=== PATIENT | female | born 1930 | race Caucasian/White ===

== ENCOUNTER → 2017-01-03 | Outpatient (CLI) | payer OTHER | LOC: FCPNEURO 22:47 | PROVIDERS: ATTEND Psychiatry & Neurology Sleep Medicine | DX: G47.33 Obstructive sleep apnea (adult) (pediatric) (principal); G47.34 Idiopathic sleep related nonobstructive alveolar hypoventilation; G47.61 Periodic limb movement disorder ==

== ENCOUNTER 2018-04-16 16:47 | Inpatient (IN) | payer OTHER ==
--- NOTE | 2018-04-16 17:05 | EDPHY ---
H & P Time Seen by Provider: 04/16/18 17:00 HPI/ROS: Chief complaint. Palpitations HPI. 87-year-old female presents emergency department with complaint of few weeks fast heart rate. She takes metoprolol and Eliquis for chronic atrial fibrillation. She has chronic shortness of breath and is on oxygen. Today she felt she needed checkup for the 2 weeks of fast heart rate and called her PCP who then called 911. She has no chest pain and does not have shortness of breath. No fever cough. No unusual leg pain or swelling. ROS 10 systems were reviewed and negative with the exception of the elements mentioned in the history of present illness Past Medical/Surgical History: Atrial fibrillation Social History: Single, nonsmoker, no alcohol Smoking Status: Never smoked Physical Exam: General Appearance: Alert well-developed female mild distress vital signs show initial heart rate 120. Recheck at 5:15 p.m. Heart rate is 81 Eyes: Pupils equal and round no pallor or injection. ENT, Mouth: Mucous membranes are moist. Respiratory: There are no retractions, lungs are clear to auscultation. Cardiovascular: Irregularly irregular rate and rhythm Gastrointestinal: Abdomen is soft and nontender, no masses, bowel sounds normal. Neurological: Awake and alert, sensory and motor exams grossly normal. Skin: Warm and dry, no rashes. Musculoskeletal: Neck is supple nontender. Extremities symmetrical, full range of motion. Psychiatric: Patient is oriented X 3, there is no agitation. Constitutional: Initial Vital Signs Temperature (C) 36.6 C 04/16/18 16:51 Heart Rate 120 H 04/16/18 16:51 Respiratory Rate 20 04/16/18 16:51 Blood Pressure 156/75 H 04/16/18 16:51 O2 Sat (%) 91 L 04/16/18 16:51 O2 Delivery Mode Room Air Allergies/Adverse Reactions: adhesive tape [Adhesive Tape] Allergy (Severe, Verified 04/16/18 16:50) SKIN PEELS codeine [Codeine] Allergy (Intermediate, Verified 04/16/18 16:50) GI UPSET propoxyphene HCl [From Darvon] Allergy (Intermediate, Verified 04/16/18 16:50) GI UPSET albuterol [Albuterol] Allergy (Unknown, Verified 04/16/18 16:50) Other-Enter Comments Home Medications: Medication Instructions Recorded Eliquis 04/16/18 Levothyroxine 04/16/18 Metoprolol Succinate 04/16/18 Medical Decision Making - Diagnostics EKG Interpretation: EKG interpreted by me shows atrial fibrillation normal axis. QRS otherwise normal. PVC is noted. No significant ST elevation or depression. Ventricular response is 99 Imaging Results: Imaging Impressions Chest X-Ray 04/16/18 17:27 Impression: 1. New right pleural effusion. Difficult to exclude underlying pneumonia or consolidation of other etiology. 2. Possible new cardiomegaly versus findings related to decreased inspiratory phase and portable technique. Chest x-ray interpreted by me shows a new right pleural effusion Procedures: IV normal saline, monitor ED Course/Re-evaluation: On re-evaluation patient is stable. I have spoken to cardiology from [facility] it covers [facility]. The patient and I discussed imaging lab EKG findings. We discussed treatment plan including recommendation for admission. She expresses understanding and agreement I consulted discussed case Dr. Redmond, hospitalist who sees the patient in the emergency department Differential Diagnosis: Initially poorly controlled atrial fibrillation however it stabilizes and the ventricular response is in the 70s. No evidence for acute coronary syndrome. New right pleural effusion. I have considered pneumonia as an etiology. - Data Points Laboratory Results: Laboratory Results 04/16/18 17:07 04/16/18 17:07 04/16/18 04/16/18 04/16/18 17:11 17:07 17:07 WBC 6.53 10^3/uL 10^3/uL (3.80-9.50) RBC 5.40 10^6/uL H 10^6/uL (4.18-5.33) Hgb 15.9 g/dL g/dL (12.6-16.3) Hct 49.4 % H % (38.0-47.0) MCV 91.5 fL fL (81.5-99.8) MCH 29.4 pg pg (27.9-34.1) MCHC 32.2 g/dL L g/dL (32.4-36.7) RDW 14.4 % % (11.5-15.2) Plt Count 337 10^3/uL 10^3/uL (150-400) MPV 10.9 fL fL (8.7-11.7) Neut % (Auto) 53.3 % % (39.3-74.2) Lymph % (Auto) 33.4 % % (15.0-45.0) Ross % (Auto) 10.6 % % (4.5-13.0) Eos % (Auto) 1.4 % % (0.6-7.6) Baso % (Auto) 1.1 % % (0.3-1.7) Nucleat RBC Rel Count 0.0 % % (0.0-0.2) Absolute Neuts (auto) 3.49 10^3/uL 10^3/uL (1.70-6.50) Absolute Lymphs (auto) 2.18 10^3/uL 10^3/uL (1.00-3.00) Absolute Monos (auto) 0.69 10^3/uL 10^3/uL (0.30-0.80) Absolute Eos (auto) 0.09 10^3/uL 10^3/uL (0.03-0.40) Absolute Basos (auto) 0.07 10^3/uL 10^3/uL (0.02-0.10) Absolute Nucleated RBC 0.00 10^3/uL 10^3/uL (0-0.01) Immature Gran % 0.2 % % (0.0-1.1) Immature Gran # 0.01 10^3/uL 10^3/uL (0.00-0.10) Sodium 136 mEq/L mEq/L (135-145) Potassium 4.4 mEq/L mEq/L (3.3-5.0) Chloride 99 mEq/L mEq/L (97-110) Carbon Dioxide 24 mEq/l mEq/l (22-31) Anion Gap 13 mEq/L mEq/L (6-14) BUN 23 mg/dL mg/dL (7-23) Creatinine 0.9 mg/dL mg/dL (0.6-1.0) Estimated GFR 59 Glucose 110 mg/dL H mg/dL (70-100) Calcium 9.3 mg/dL mg/dL (8.5-10.4) POC Troponin I 0.01 ng/mL ng/mL (0.00-0.08) NT-Pro-B Natriuret Pep 2070 pg/mL H pg/mL (0-450) TSH 7.230 uIU/mL H uIU/mL (0.465-4.680) Point of Care Test Results: Chemistry 04/16/18 17:11 POC Troponin I 0.01 ng/mL ng/mL (0.00-0.08) Departure - Departure Disposition: [facility] Inpatient Acute Clinical Impression: Pleural effusion, right Congestive heart failure Qualifiers: Heart failure type: unspecified Heart failure chronicity: unspecified Qualified Code(s): I50.9 - Heart failure, unspecified Atrial fibrillation Qualifiers: Atrial fibrillation type: chronic Qualified Code(s): I48.2 - Chronic atrial fibrillation Condition: Fair
[2018-04-16 17:39] LABS: PLATELET COUNT 337 10^3/uL (150-400)
--- NOTE | 2018-04-16 20:37 | CPEKG ---
Test Reason : OPEN Blood Pressure : / mmHG Vent. Rate : 099 BPM Atrial Rate : 133 BPM P-R Int : 225 ms QRS Dur : 082 ms QT Int : 352 ms P-R-T Axes : 120 084 037 degrees QTc Int : 452 ms Atrial fibrillation Borderline right axis deviation Minimal ST depression, anterolateral leads Minimal ST elevation, lateral leads Confirmed by Jose Gunderson ([id number]) on 04/16/2018 8:37:28 PM Referred By: Confirmed By:Jose Gunderson
[2018-04-16] MEDS ORDERED: ONDANSETRON DISINTEGRATING 4 MG TAB PO PRN (22:33)
[2018-04-16] MEDS ORDERED: ONDANSETRON 4 MG/2 ML VIAL IVP PRN (22:33)
[2018-04-16] MEDS ORDERED: ACETAMINOPHEN 325 MG TAB PO PRN (22:33)
[2018-04-16] MEDS ORDERED: FUROSEMIDE 20 MG/2 ML VIAL IVP ONE (22:41)
[2018-04-16] MEDS: APIXABAN 2.5 MG PO SCH (23:34)
[2018-04-16] MEDS: METOPROLOL TARTRATE PO SCH (23:34)
[2018-04-16] MEDS: CYCLOSPORINE 0.05% EACHEYE SCH (23:35)
[2018-04-16] MEDS: DORZOLAMIDE HCL EACHEYE SCH (23:35)
--- NOTE | 2018-04-17 03:37 | GHP ---
DATE OF ADMISSION: 04/16/2018 SOURCE: Patient provides history, appears reliable. EMR is reviewed and case discussed with corbin estrella hospitalist. CHIEF COMPLAINT: Palpitations and shortness of breath. HISTORY OF PRESENT ILLNESS: This is a very pleasant 87-year-old female with past medical history sig nificant for chronic atrial fibrillation, currently on Eliquis and metoprolol, hypothyroidism and rhe umatoid arthritis, with a chronic right pleural effusion, who presents to the emergency department to day with complaints of intermittent palpitations and worsening shortness of breath for several weeks. The patient has chronic shortness of breath. She is on O2. She has a chronic right pleural effusi on, for which she has had multiple thoracenteses, last in 2011, with a negative malignancy workup, wh jung also complains of lower extremity edema, orthopnea, and PND. The patient reports that she drinks a lot a water. She has no previous reported history of CHF. She denies any chest pain or pressure. She has had a mild intermittent cough with occasional clear sputum production. Patient denies any fe vers. She has had occasional nighttime chills, but no rigors. She also reports chronic history of n ighttime sweats. She denies any acute changes in weight. REVIEW OF SYSTEMS: Ten systems reviewed, negative except as noted above. ALLERGIES: To adhesives, codeine, Darvocet, and albuterol. HOME MEDICATIONS: Eliquis 2.5 mg p.o. twice daily, levothyroxine 25 mcg p.o. daily, metoprolol tartr ate 12.5 mg p.o. twice daily, dorzolamide 1 drop in each eye twice daily, Restasis 0.05% 1 drop in ea ch eye twice daily. PAST MEDICAL HISTORY: Significant for chronic atrial fibrillation, on anticoagulation with Eliquis a s above, hypothyroidism, rheumatoid arthritis, not on any DMARDs or immunosuppressants, chronic right pleural effusion. PAST SURGICAL HISTORY: Significant for repositioning of the kidney on the right, cholecystectomy, hy sterectomy, exploratory laparotomy, appendectomy, bilateral cataract extraction with lens placement, LASIK surgery. The patient had a hip fracture repair followed by a right total hip arthroplasty. Alex granados has also had a thoracentesis on the right pleural effusion x2, last being in 2011, with a negative evaluation. FAMILY HISTORY: Father with diabetes and Parkinson's, age 60. Mother with history of IN la ter age. The patient with 3 brothers and a sister with history of CAD and IN. Son has degenerative joint disease in his knees, but otherwise is healthy. SOCIAL HISTORY: Patient lives alone. She is . She does not smoke, drink, or do drugs. CODE STATUS: Full. PHYSICAL EXAM: VITAL SIGNS: Upon arrival to the ED, blood pressure 156/75, heart rate 120, respirat ory rate 20, O2 saturation 91% on room air, with a temperature of 36.6. Current vitals available: B lood pressure 153/75, heart rate 64, respiratory rate is 20, O2 saturation 100% on 2 L by nasal cannu la, and temperature 36.6. GENERAL: No acute distress. Very pleasant, frail, elderly-appearing gulshan ram, who is sitting up on the edge of the bed. She is in good spirits. HEAD: Normocephalic, atrauma tic. EYES: Extraocular muscles are grossly intact. Pupils equal, round, with reactivity to light b ilaterally, and symmetric. Lens reflexes appreciated bilaterally. No scleral icterus or conjunctiva l injection. ENT: Mucous membranes appear moist. No oropharyngeal erythema or exudates. NECK: Portillo pple. Trachea midline. CV: Irregularly irregular, rate in the 60s to 70s. No murmurs, rubs, or ga llops appreciated. RESPIRATORY: Unlabored breathing. Patient with nasal cannula in place. Diminis hed breath sounds by laterally. A few crackles on the right base. No wheezes or rhonchi. GI: Posi tive bowel sounds. Soft, nontender to palpation. No rebound, guarding, or masses appreciated. : No suprapubic tenderness to palpation. No Shelton catheter in place. EXTREMITIES: Patient does have 1 to 2+ pitting edema of bilateral lower extremities just proximal to the ankle. She has 1+ pedal p ulses bilaterally and symmetric. MUSCULOSKELETAL: Moves all extremities. Sits up independently. Grossly deconditioned. NEUROLOGIC: Patient awake, alert, and oriented x3. Moves all extremities as noted above. Nothing focal. No f acial drooping appreciated. PSYCH: The patient's thought process, content, and questions are all ap propriate. Patient is pleasant and cooperative. LABORATORY STUDIES: 1. WBC 6.53, H and H 15.9 and 49.4, MCV of 91.5, platelet count 337. No bands. VBG: Lactic acid 0 .8. 2. Sodium is 136, potassium 4.4, chloride 99, CO2 is 24, anion gap of 13, BUN is 23, creatinine is 0 .9, GFR of 59, glucose is 110, calcium 9.3. 3. Troponin is negative. Troponin 0.01. BTNP is 2070. TSH is 7.230 with normal T3, T4 at 1.08 and 3.59 respectively. 4. Blood cultures x2 are pending. 5. EKG, reviewed myself, showing atrial fibrillation, rate in the 90s. QTc is 554, ST depressions i n the anterolateral leads. PVC is present, almost patient with atrial flutter appearance. 6. Chest x-ray: Image and report reviewed myself. Patient with a moderate right pleural effusion, cardiomegaly, chronic effusion, orthopedic fusion of the lower cervical spine. ASSESSMENT AND PLAN: A very pleasant 87-year-old female, who presents to the emergency department [facility] complaints of worsening palpitations and shortness of breath. 1. Atrial fibrillation or flutter with rapid ventricular response. The patient has had improvement in heart rate. She has received a dose of Lasix since arrival to the medical floor. I gave her gent le diuresis with 20 mg IV Lasix. The patient states she has had multiple voids and her respiratory s tatus is improved, and she has not had any additional palpitations since arrival to the floor. Her h eart rate is now in the 60s to 70s. She remains in atrial fibrillation/flutter. We will plan to res ume patient's metoprolol and Eliquis. I suspect patient's symptoms have been triggered by worsening congestive heart failure. She denies a history of diagnosis of congestive heart failure, but she has cardiomegaly, lower extremity edema, orthopnea, paroxysmal nocturnal dyspnea, consistent clinically with that, and her BTNP is elevated at greater than 2000. We will plan for an echocardiogram in the morning. 2. Acute congestive heart failure decompensation. Plan as noted above. 3. Right moderate pleural effusion. The patient reports that this is a chronic issue for her. She has had multiple thoracenteses in the past and workup that was negative. She was advised that this w as likely related to her rheumatoid arthritis. She has not had any fevers. She does report some angelica shirley chills and has had chronic sweats. She has had some mild cough, but no leukocytosis. She has b een afebrile here. We will hold off on antibiotic therapy at this time. She has had blood cultures drawn. 4. Elevated blood pressures. Suspect some underlying hypertension, although patient is still with c omplaints of mild dyspnea. We will hold off on addition from her metoprolol and Lasix. Patient note s that she was previously placed on Lasix, but this was discontinued secondary to drops in blood pres sure with the metoprolol previously. 5. Hypothyroidism. TSH was elevated, but her T3 and T4 are within normal limits. Continue patient' s home dosing of levothyroxine. 6. Fluid, electrolyte, and nutrition. Patient will be saline locked while she is on diuresis. Flui d restriction to 1800 mL per 24 hours. Further counseling to the patient regarding fluid restriction . Electrolytes at this time are adequate. Continue to monitor. Cardiac diet has been ordered. 7. Prophylaxis. Patient is already on Eliquis. No need for SCDs. 8. Code status is full. 9. Disposition. Patient admitted to observation status given her history of chronic atrial fibrilla tion with rapid improvement. Consider further evaluation after her echocardiogram of the right pleur al effusion, as patient would desire to go home and have followup with her primary care provider, and further evaluation at that point. /[id number]/MODL
[2018-04-17 05:03] LABS: PLATELET COUNT 317 10^3/uL (150-400)
[2018-04-17] MEDS: LEVOTHYROXINE 25 MCG PO SCH (05:17)
[2018-04-17] MEDS ORDERED: FUROSEMIDE 20 MG/2 ML VIAL IVP SCH (09:00)
[2018-04-17] MEDS: CYCLOSPORINE 0.05% EACHEYE SCH ×2 (09:26→20:27)
[2018-04-17] MEDS: DORZOLAMIDE HCL EACHEYE SCH ×2 (09:26→20:28)
[2018-04-17] MEDS: METOPROLOL TARTRATE PO SCH ×2 (09:26→20:26)
--- NOTE | 2018-04-17 12:05 | HOSPPROG ---
Hospitalist Progress Note Assessment/Plan: #Acute on chronic hypoxemic resp failure: due to HF. Much improved with Lasix #Decompensated diastolic HF: edema resolved, 88%RA -echo today shows Grade 3 diastolic dysfunction. Mod MR/TR, progressed from prior; should be seen in valvular heart clinic. May be mitral clip candidate -transition to PO Lasix #Atrial fibrillation with RVR: HR improved. BB, Eliquis #h/o right pleural effusion: last thoracentesis 2011. Had been attributed to RA. 88% RA after diuresis #Accelerated HTN: add Losartan #Hypothyroidism: TSH 7, normal free-hormone levels. #Disp: inpatient admission for medication titration, monitored diuresis Discussed case with Dr. Olea. FU up with him within 1 week Additional direct care spent: 40 min bedside with patient, reviewing prior echo , reports (12:00-12:40) Subjective: SOB and LE edema improved Objective: Vital Signs Temp Pulse Resp BP Pulse Ox 36.7 C 65 18 127/80 H 98 04/17/18 11:35 04/17/18 11:35 04/17/18 11:35 04/17/18 11:35 04/17/18 11:35 Laboratory Results 04/17/18 03:48 04/17/18 03:48 04/16/18 04/17/18 04/18/18 05:59 05:59 05:59 Output Total 500 Balance -500 - Time Spent With Patient Time Spent with Patient: greater than 35 minutes Time Spent with Patient: Greater than 35 minutes spent on this patients care, greater than 50% of time spent counseling, educating, and coordinating care regarding the above mentioned plan. - Physical Exam Constitutional: no apparent distress Eyes: PERRL Ears, Nose, Mouth, Throat: moist mucous membranes Cardiovascular: irregularly irregular, No edema Respiratory: other (decreased BS right base) Gastrointestinal: normoactive bowel sounds Genitourinary: no bladder fullness Skin: warm Musculoskeletal: full muscle strength Neurologic: AAOx3, CN II-XII Intact Psychiatric: interacting appropriately ICD10 Worksheet Patient Problems: Problems Problem Status Onset Atrial fibrillation Acute Congestive heart failure Acute Pleural effusion, right Acute
--- NOTE | 2018-04-17 12:22 | ECHO ---
[email or web address] [address] Main: [phone] Fax: [email or web address] Echocardiogram Name: SYDNIE JOHNSON MR#: [id number] Study Date: 04/17/2018 Study Time: 08:16 AM Date of : 1930 Age: 87 year(s) Height: 162.6 cm (64 in.) Weight: 54.89 kg (121 lb.) BSA: 1.58 m2 Gender: Female Examination: Echo Indication: arrhythmia, effusions, chf Image Quality: Adequate Contrast: Requested by: Leighann Allen BP: 146 mmHg/76 mmHg Heart Rate: Rhythm: Indication: arrhythmia, effusions, chf Procedure Staff Sr Community Manager: Vidhya Dickey [facility] Reading Physician: Javier Bridges MD Requesting Provider: Conclusions: Normal size left ventricle. Normal global systolic LV function. EF is 61 %. Mildly dilated right ventricle. The left atrium is mildly dilated. The right atrium is moderately dilated. The mitral valve leaflets are redundant. There is mild to moderate posteriorly directed mitral regurgitation.. The aortic valve is tri-leaflet. No aortic valve stenosis is present. Trivial aortic valve regurgitation. Moderate to severe tricuspid valve regurgitation. Right ventricular systolic pressure measures 45mmHg. When compared to the 12/30/10 study. The degree of mitral and tricuspid regurgitation has increased. The pulmonary artery pressure estimate is similar. Measurements: Chambers Valvular Assessment AV/MV Valvular Assessment TV/PV Normal Normal Normal Name Value Range Name Value Range Name Value Range Ao Darby (2D): 3.0 cm (1.4 cm-2.6 AV Vmax: 0.89 m/s (1 m/s-1.7 TR Vmax: 3.16 mm/s ( - ) cm) m/s) TR PGmax: 40 mmHg ( - ) IVSd (2D): 0.8 cm (0.6 cm-1.1 AV maxP mmHg ( - ) syst. PAP: 45 mmHg ( - ) cm) AV meanP mmHg ( - ) PV Vmax: 0.66 m/s (0.6 m/s-0.9 LVDd (2D): 4.1 cm (3.9 cm-5.3 SHAN (VTI): 1.9 cm ( - ) m/s) cm) MV E Vmax: 0.97 m/s ( - ) PV PGmax: 2 mmHg ( - ) LVDs (2D): 2.6 cm (2.1 cm-4 MV A Vmax: 0.36 m/s ( - ) cm) MV E/A: 2.69 ( - ) LVPWd (2D): 0.8 cm ( - ) MV PHT: 0.057 s ( - ) LVOTd 2.0 cm 2.0 cm mm MVA (PHT): 3.9 s ( - ) Patient: SYDNIE JOHNSON Study Date: 04/17/2018 Page 1 of 2 08:16 AM LVEF (BP): 61 % (>=55 %) RVDd(2D): 3.0 cm (1.9 cm-3.8 cmmm) Continued Measurements: Chambers Valvular Assessment AV/MV Valvular Assessment TV/PV Name Value Name Value Name Value LADs: 3.5 cm MV DecTime: 151 m/s CVP (est.): 5 mmHg LADs Lon.6 cm MV E' Septal: 0.08 m/s LA Area: 20.1 cm2 MV E/E' Septal: 11.40 LA Volume: 57 ml MV E/E' Lateral: 10.70 LA Volume Index: 36.1 ml/m2 RA Area: 21.7 cm2 Additional Vessels Name Value Ao Ascendin.1 cm Inferior Vena Cava: 2.0 cm Findings: Left Ventricle: Normal size left ventricle. No LV hypertrophy. Normal global systolic LV function. EF is 61 %. No regional wall motion abnormality. Grade 3 diastolic dysfunction (reversible restrictive LV filling pattern). Right Ventricle: Mildly dilated right ventricle. Normal RV function. Left Atrium: The left atrium is mildly dilated. Right Atrium: The right atrium is moderately dilated. Mitral Valve: The mitral valve leaflets are redundant. There is mild to moderate posteriorly directed mitral regurgitation.. Aortic Valve: The aortic valve is tri-leaflet. No aortic valve stenosis is present. Trivial aortic valve regurgitation. Tricuspid Valve: The tricuspid valve is normal in appearance and function. Moderate to severe tricuspid valve regurgitation. The pulmonary artery pressure is moderately increased. Right ventricular systolic pressure measures 45mmHg. Pulmonic Valve: The pulmonic valve is normal in appearance and function. Mild pulmonic valve regurgitation is noted. There is no pulmonic stenosis seen. Aorta: The aorta is normal. Normal size aortic root measuring 3.0 cm. Normal size ascending aorta measuring 3.1 cm. IVC: The IVC is normal sized. Pericardium: Trivial pericardial effusion. There is a pleural effusion present. (No Signature Object) Patient: SYDNIE JOHNSON Study Date: 04/17/2018 Page 2 of 2 08:16 AM [id number]
--- NOTE | 2018-04-17 13:42 | ASMTCMCOM ---
CM Note CM Note Notes: 04/17/2018 Case Management Note Pt admitted for afib and pleural effusion. Discussed pt during rounds this morning. ECHO planned. Pt lives independently with family nearby for assistance if needed. There are no therapy evals ordered at this time. Case Management d/c poc: anticipating independent with follow up as directed. Case Management available if needs change. Date Signed: 04/17/2018 01:41 PM Electronically Signed By:Jeniffer Toro RN
[2018-04-17] MEDS: APIXABAN 2.5 MG PO SCH ×2 (13:59→20:25)
[2018-04-17] MEDS: LOSARTAN POTASSIUM 25 MG TAB PO SCH (13:59)
[2018-04-17] MEDS: FUROSEMIDE 20 MG TAB PO SCH ×2 (14:00→14:03)
[2018-04-17] MEDS ORDERED: SENNOSIDES 17.6 MG/10 ML UDL PO PRN (15:32)
[2018-04-17] MEDS ORDERED: FUROSEMIDE 20 MG TAB PO ONE (15:43)
--- NOTE | 2018-04-17 17:07 | PDMN ---
Medical Necessity Medical necessity: [facility] M505 Afib: 87 yo w/ afib or flutter w/ RVR, acute CHF decompensation, R mod pleural effusion, HTN, dyspnea, initially OBS but pt now with acute on chronic hypoxemic resp fx due to HF, 88% on RA, echo shows grade 3 diastolic dysfunction, mod MR/TR progressed from prior, cardiology consult, pt will require additional MN for tele monitoring, medication titration and monitoring of diuresis. BC still pending. Hx chronic a fib, hypothyroidism, rheumatoid arthritis, chronic R pleural effusion, surgical hx repositioning R kidney. Change to IP status 106/18 @ 1340 per MD order
[2018-04-17] MEDS ORDERED: SENNOSIDES/DOCUSATE SODIUM TAB PO PRN (18:22)
[2018-04-18] MEDS ORDERED: LEVOTHYROXINE 50 MCG TAB PO SCH (07:15)
[2018-04-18] MEDS: LEVOTHYROXINE 25 MCG PO SCH (08:30)
[2018-04-18] MEDS: CYCLOSPORINE 0.05% EACHEYE SCH ×2 (08:48→20:23)
[2018-04-18] MEDS: FUROSEMIDE 20 MG TAB PO SCH ×2 (08:48→17:04)
[2018-04-18] MEDS: LOSARTAN POTASSIUM 25 MG TAB PO SCH (08:48)
[2018-04-18] MEDS: DORZOLAMIDE HCL EACHEYE SCH ×2 (08:48→20:23)
[2018-04-18] MEDS: METOPROLOL TARTRATE PO SCH ×2 (08:50→20:23)
--- NOTE | 2018-04-18 13:43 | HOSPPROG ---
Hospitalist Progress Note Assessment/Plan: * Large right pleural effusion -may be due to CHF, however patient has not improved with diuresis -check CT chest and plan for thoracentesis * Acute on chronic respiratory failure -gets extreme SOB when she takes O2 off - doesn't feel ready for home * Worsening MR -cardiology to consult - d/w Lonny SCHAEFFER * Acute on chronic diastolic CHF * AFib -continue beta-lakia - rate control -hold Eliquis for procedure * HTN -Losartan added * Hypothyroidism, TSH 7 -will uptitrate Synthroid * RA Subjective: Feels no better than admission. Severe SOB with oxygen off just going to the bathroom. Objective: Vital Signs Temp Pulse Resp BP Pulse Ox 36.6 C 72 20 107/63 95 04/18/18 12:00 04/18/18 12:00 04/18/18 12:00 04/18/18 12:00 04/18/18 12:00 Laboratory Results 04/18/18 03:15 04/17/18 04/18/18 04/19/18 05:59 05:59 05:59 Intake Total 1885 Output Total 2500 Balance -615 CXR viewed, my personal interpretation is - significant right pleural effusion d/w cardiology for consult as above tele - rate controlled afib - Physical Exam Constitutional: no apparent distress, appears nourished, not in pain Cardiovascular: regular rate and rhythym, no murmur, rub, or gallop Respiratory: no respiratory distress, no rales or rhonchi, clear to auscultation , reduced air movement (right base), dullness to percussion Gastrointestinal: normoactive bowel sounds, soft, non-tender abdomen, no palpable masses Skin: no rashes or abrasions, no fluctuance, no induration Neurologic: AAOx3, sensation intact bilaterally Psychiatric: interacting appropriately, not anxious, not encephalopathic, thought process linear ICD10 Worksheet Patient Problems: Problems Problem Status Onset Congestive heart failure Acute Atrial fibrillation Acute Pleural effusion, right Acute
[2018-04-18] MEDS ORDERED: LEVOTHYROXINE 25 MCG TAB PO SCH (13:46)
[2018-04-18] MEDS: APIXABAN 2.5 MG PO SCH (13:48)
[2018-04-18] MEDS ORDERED: IOPAMIDOL (ISOVUE 370) 100 ML BTL IV ONE (14:04)
[2018-04-18 15:17] LABS: INR 1.07 (0.83-1.16); PROTIME(PATIENT) 14.1 SEC (12.0-15.0)
[2018-04-18] MEDS ORDERED: LIDOCAINE 1% 300 MG/30 ML SDV ONE (15:32)
[2018-04-19] MEDS: LOSARTAN POTASSIUM 25 MG TAB PO SCH (09:55)
[2018-04-19] MEDS: FUROSEMIDE 20 MG TAB PO SCH (09:55)
[2018-04-19] MEDS: CYCLOSPORINE 0.05% EACHEYE SCH (09:56)
[2018-04-19] MEDS: METOPROLOL TARTRATE PO SCH (09:57)
[2018-04-19] MEDS: DORZOLAMIDE HCL EACHEYE SCH (09:57)
[2018-04-19 11:18] VITALS: BP 109/48
[2018-04-19] MEDS ORDERED: POTASSIUM CL 10 MEQ TAB PO SCH (12:30)
--- NOTE | 2018-04-19 14:42 | GCON ---
CARDIOLOGY CONSULTATION DATE OF CONSULTATION: 04/19/2018 REASON FOR CONSULTATION: Congestive heart failure, atrial fibrillation with rapid ventricular respon se, pleural effusion, and tricuspid and mitral regurgitation. HISTORY OF PRESENT ILLNESS: The patient is a pleasant 87-year-old female who looks much younger than her stated age, with a known history of chronic atrial fibrillation, on a rate control and anticoagu lation strategy; hypothyroidism; rheumatoid arthritis; chronic right-sided pleural effusion, who pres ented to [facility] on April 16, 2018, with complaints of increasing shortness of b reath, dyspnea on exertion, and palpitations. She was found to be in atrial fibrillation with a rapi d ventricular response on admission. She was treated with IV diuresis, with marked improvement in sy mptoms. Echocardiogram demonstrated preserved left ventricular function with moderate to severe tric uspid regurgitation with RV systolic pressure of 45 mmHg. No evidence of aortic stenosis. There is mild to moderate posteriorly directed mitral regurgitation, with redundant leaflets. There was no ev idence of enlarged IVC. There is trivial pericardial effusion, without evidence of tamponade. Mohan red to previous echocardiogram, there had been progression of tricuspid and mitral valve regurgitatio n. Chest x-ray demonstrated pleural effusion. She underwent thoracentesis yesterday and drained approxi mately 550 cc of fluid. She is feeling markedly better. She is back to baseline. There is no evidence of lower extremity ed jaimie. She remains in rate-controlled atrial fibrillation at this time. PAST MEDICAL HISTORY: Chronic atrial fibrillation, mitral regurgitation, moderate to severe tricuspi d regurgitation, chronic right-sided pleural effusion. MEDICATIONS ON ADMISSION: Include cyclosporine eye drops, dorzolamide 1 drop b.i.d., metoprolol tart rate 12.5 mg p.o. b.i.d., Eliquis 2.5 mg p.o. b.i.d., potassium chloride 10 mEq daily, losartan 25 mg daily, Synthroid 25 mcg daily, and Lasix 20 mg daily. ALLERGIES: Allergies to medication include adhesive tape, codeine, propoxyphene, and albuterol. SOCIAL HISTORY: Iris lives alone. She is a nonsmoker. She rarely drinks alcohol. PHYSICAL EXAMINATION: VITAL SIGNS: Blood pressure 109/48; heart rate 73, irregular, in atrial fibri llation; oxygen saturation 95% on room air; temperature 36.1. Weight at time of discharge is 50.8 kg . Weight on admission of 52.7 kg. GENERAL: She is awake, alert, oriented, appropriate, younger nini n stated age. There is no evidence of JVP or carotid bruits. LUNGS: Clear to auscultation bilatera lly. CARDIAC: S1, S2. Irregular/irregular. There is a 2/6 systolic murmur at apex. ABDOMEN: Sof t, nontender, nondistended. There is no evidence of cyanosis, clubbing or edema. EXTREMITIES: Dist al pulses are intact. LABORATORY DATA: At time of discharge, white blood cell count of 5.28, hemoglobin of 14.5, hematocri t of 44.4, platelet count 317. Sodium 132, potassium 3.5, chloride 97, bicarb 27, BUN 23, creatinine 0.9. AST 33, ALT 41, alkaline phosphatase 267. Echocardiogram as described above. IMPRESSION: 1. Acute on chronic diastolic congestive heart failure. 2. Mild to moderate mitral regurgitation. 3. Moderate to severe tricuspid regurgitation. 4. Moderate pulmonary hypertension. 5. Chronic atrial fibrillation. 6. Chronic right-sided recurrent pleural effusion. The patient is a pleasant 87-year-old female with complaints of increasing shortness of breath, dyspn ea on exertion, weight gain, and onset of edema. She was taken off her Lasix in mid February maria esther to symptomatic hypotension. I think her symptoms are due to being off her Lasix and were compoun ded by increasing right-sided pleural effusion, resulting in exacerbation of atrial fibrillation, cre ating atrial fibrillation with rapid ventricular response, worsening her symptoms and her valvular di sease. She is now back to baseline. She is back to a dry weight. PLAN: Recommend patient be discharged on current medical therapy, including Lasix 20 mg daily. Also recommend she remain on her current dose of metoprolol and Eliquis 2.5 mg p.o. b.i.d. Recommend fol lowup in our office in 1 week. Discussed monitoring weights daily. Patient will call our office if she gains more than 2 pounds that persists consecutively for 2 days. /[id number]/MODL
--- NOTE | 2018-04-19 19:14 | GDS ---
DISCHARGE DIAGNOSES: 1. Exudative right-sided pleural effusion. 2. Acute respiratory failure. 3. Worsening mitral regurgitation. 4. Acute on chronic diastolic congestive heart failure. 5. Atrial fibrillation. 6. Hypertension. 7. Hypothyroidism with TSH of 7. 8. Rheumatoid arthritis. HISTORY: This is an 87-year-old female, who has a history of a right pleural effusion which has been tapped in the past and found to be benign. However it has been almost 5 years since that has bother ed her. Recently her primary care doctor did discontinue Lasix for some low blood pressures. She pr esented to the hospital with reaccumulation of this right pleural effusion as well as acute respirato ry failure and severe shortness of breath with any exertion requiring new oxygen. Differential diagnosis for this pleural effusion is diastolic congestive heart failure versus due to an underlying pulmonary process such as pleural effusion related to her rheumatoid arthritis. Pleura l studies were consistent with a borderline exudative effusion although she had already been actively diuresed which can sometimes also appear as a mild exudative effusion. There is some difference of opinion regarding etiology of the pleural effusion as Dr. Bridges reviewed her case, felt it was likel y pulmonary in origin and then Dr. Olea reviewed the case and felt it is likely cardiac in origin. S he does have some mild worsening mitral regurgitation. After thoracentesis she had dramatic immediate improvement in her shortness of breath and was felt sa fe to go home. She was able to come off oxygen. Per Dr. Olea the recent discontinuation of the Lasi x probably led to her reaccumulation of this pleural fluid which had been well controlled for approxi mately 5 years. Plan is to reinstitute Lasix indefinitely. She can also follow up with Dr. Milton, a pulmonary doctor whom she has seen in the past for this effusion. DISCHARGE MEDICATIONS: Please see computer record for full detailed list. New medications: 1. Lasix 20 mg p.o. daily. 2. Potassium 10 mEq p.o. daily. 3. Synthroid slightly up titrated to 37.5 mg p.o. daily. 4. Cozaar initiated at 25 mg p.o. daily for better treatment of diastolic congestive heart failure. DISCHARGE INSTRUCTIONS: 1. Follow up with Dr. Catalino Olea in 1 week. 2. Follow up with Dr. Timi Milton in 2 weeks. Greater than 30 minutes' time was spent arranging this discharge. Patient was seen and examined by rayray granados on day of discharge. /[id number]/MODL
[2018-04-20] MEDS ORDERED: FUROSEMIDE 20 MG TAB PO SCH (09:00)
== END 2018-04-19 14:05 | disposition home or self-care (01) | DRG 291 ==
LOC: INTOOBSV 18:58 → F2W 19:42 → OBSVTOIN 04-17 13:40
PROVIDERS: ADMIT Internal Medicine; ATTEND Internal Medicine
PROC: 0W993ZX Drainage of Right Pleural Cavity, Percutaneous Approach, Diagnostic (ICD-10-PCS; principal; 2018-04-18)
DX: I11.0 Hypertensive heart disease with heart failure (principal); I50.33 Acute on chronic diastolic (congestive) heart failure; J96.01 Acute respiratory failure with hypoxia; J90 Pleural effusion, not elsewhere classified; I48.2 Chronic atrial fibrillation; I08.1 Rheumatic disorders of both mitral and tricuspid valves; E03.9 Hypothyroidism, unspecified; M06.9 Rheumatoid arthritis, unspecified; Z79.01 Long term (current) use of anticoagulants
CPT/HCPCS: 84481-90; 84484-PO; 96374; 97116-GP; 97161-GP; 97165-GO; G0378; G8978-GP-CI; G8979-GP-CI; G8980-GP-CI; G8987-GO-CI; G8988-GO-CI; J1940; Q9967

== ENCOUNTER → 2018-05-14 | Outpatient (CLI) | payer OTHER | LOC: FIMAGING 09:56 | PROVIDERS: ATTEND Internal Medicine Pulmonary Disease | DX: J90 Pleural effusion, not elsewhere classified (principal) ==